=== PATIENT | male | born 1935 | race Caucasian/White ===

== ENCOUNTER 2020-12-31 18:12 | Inpatient (IN) | payer OTHER, MEDICARE, MEDICAID ==
[~2020-12-31] VITALS: Ht 167.6 cm; Wt 95.7 kg
[2021-01-01 00:02] VITALS: BP 133/59
[2021-01-01] MEDS ORDERED: ACET-1156 PO (03:09)
[2021-01-01] MEDS ORDERED: ASPI81CH49 PO (03:42)
[2021-01-01] MEDS ORDERED: BRIM0.159 OP (03:42)
[2021-01-01] MEDS ORDERED: ASCO500C46 PO (03:42)
[2021-01-01] MEDS ORDERED: FERR-20 PO (03:43)
[2021-01-01] MEDS ORDERED: LACT10SO70 PO (03:43)
[2021-01-01] MEDS ORDERED: CARB1TAB44 PO (03:43)
[2021-01-01] MEDS ORDERED: DOCU100T15 PO (03:43)
[2021-01-01] MEDS ORDERED: OMEG600C2 PO (03:43)
[2021-01-01] MEDS ORDERED: OMEP-434 PO (03:43)
[2021-01-01] MEDS ORDERED: MAGN400T40 PO (03:43)
[2021-01-01] MEDS ORDERED: ALBU108A14 IN (03:43)
[2021-01-01] MEDS ORDERED: MELA3TAB27 PO (03:43)
[2021-01-01] MEDS ORDERED: CALC500C66 PO (03:43)
[2021-01-01] MEDS ORDERED: LINA5TAB PO (03:43)
[2021-01-01] MEDS ORDERED: TROS20TA3 PO (03:43)
[2021-01-01] MEDS ORDERED: CYAN100056 PO (03:43)
[2021-01-01] MEDS ORDERED: GLIP10TA9 PO (03:43)
[2021-01-01] MEDS ORDERED: INSU70IN3 SC (03:43)
[2021-01-01] MEDS ORDERED: GABA100C9 PO (03:43)
[2021-01-01] MEDS ORDERED: UMEC1INH IN (03:43)
[2021-01-01] MEDS ORDERED: FURO40TA4 PO ×2 (03:43)
[2021-01-01] MEDS ORDERED: SELE5CAP8 PO (03:43)
[2021-01-01] MEDS ORDERED: FINA5TAB4 PO (03:43)
[2021-01-01] MEDS ORDERED: LATA0.0019 EACHEYE (03:43)
[2021-01-01 05:00] VITALS: BP 116/55
[2021-01-01 06:10] LABS: Basophils # (auto) 0.1 10 ^3/uL (0-0.2); Basophils % (auto) 1.2 % (0.0-2.0); Eosinophils # (auto) 0.4 10 ^3/uL (0-0.8); Eosinophils % (auto) 4.6 % (0.0-7.0); Hematocrit 29.7 % (41.0-53.0); Hemoglobin 10.2 g/dL (13.5-17.5); Lymphocytes # (auto) 1.3 10 ^3/uL (0.4-5.4); Mean Corpuscular Hemoglobin 32.1 pg (28.0-32.0); Mean Corpuscular Hgb Conc. 34.3 g/dL (32.0-36.0); Mean Corpuscular Volume 93.7 fL (80.0-100.0); Monocytes % (auto) 11.2 % (0.0-12.0); Neutrophils # (auto) 5.7 10 ^3/uL (1.6-8.6); Platelet Count (auto) 278 10^3/uL (140-450); Red Blood Cells 3.17 10^6/uL (4.5-5.90); Red Cell Distribution Width 14.9 % (11.8-14.3); White Blood Cell 8.5 10^3/uL (4.4-10.8)
[2021-01-01 06:22] LABS: Potassium 3.7 mmol/L (3.5-5.1)
[2021-01-01 06:36] LABS: Albumin 2.5 g/dL (3.4-5.0); BUN/Creatinine Ratio 32.6; Bilirubin, Total 0.5 mg/dL (0.2-1.0); Calcium 8.4 mg/dL (8.5-10.1); Total Protein 6.9 g/dL (6.4-8.2)
[2021-01-01 08:47] VITALS: BP 131/65
[2021-01-01] MEDS ORDERED: MORPHINE SULF INJ 2 MG/ML SYRINGE 1ML IV PRN (10:00)
[2021-01-01] MEDS ORDERED: ENOXAPARIN SOD 60 MG/0.6 ML SYRINGE SC SCH (10:00)
[2021-01-01] MEDS ORDERED: NITROGLYCERIN 0.4 MG SL TAB SL PRN (10:00)
[2021-01-01 10:51] LABS: INR 1.18 (0.9-1.15); Partial Thromboplastin Time 28.7 sec (23.0-31.2)
[2021-01-01 11:02] LABS: Urine Bacteria NONE SEEN /hpf (None Seen); Urine Blood 2+ /uL (Negative); Urine Specific Gravity 1.017 (1.001-1.035); Urine WBC 3 /hpf (0 - 3)
[2021-01-01 13:14] VITALS: BP 133/71
[2021-01-01] MEDS ORDERED: IOHEXOL 350 MG/ML 100ML IJ ONE (13:59)
[2021-01-01] MEDS ORDERED: LIDOCAINE 2%HCL (LOCAL ANESTH.) INJ 20ML MDV ONE (14:00)
[2021-01-01] MEDS ORDERED: FUROSEMIDE 20 MG/2 ML VIAL ONE (14:23)
[2021-01-01] MEDS ORDERED: ANGIOMAX 250 MG VIAL IV ONE (14:23)
[2021-01-01] MEDS ORDERED: fentaNYL CITRATE 100 MCG/2 ML VL ONE (14:23)
[2021-01-01] MEDS ORDERED: SODIUM CHL 0.9% 50 ML ONE (14:24)
[2021-01-01] MEDS ORDERED: MIDAZOLAM HCL 1MG/1ML-2 ML VIAL ONE (14:24)
[2021-01-01] MEDS ORDERED: ASPirin 325 MG TAB ONE (15:21)
[2021-01-01] MEDS ORDERED: CLOPIDOGREL 300 MG TAB ONE (15:21)
[2021-01-01] MEDS: SODIUM CHLORIDE 0.9% 1,000 ML IV SCH (16:55)
[2021-01-01 17:21] VITALS: BP 129/61
[2021-01-01 18:28] LABS: Albumin 2.4 g/dL (3.4-5.0); BUN/Creatinine Ratio 26.1; Calcium 8.3 mg/dL (8.5-10.1); Potassium 4.6 mmol/L (3.5-5.1)
[2021-01-01 18:31] LABS: Bilirubin, Total 0.6 mg/dL (0.2-1.0); Total Protein 7.2 g/dL (6.4-8.2)
[2021-01-01] MEDS: SACUBITRIL-VALSARTAN 24mg/26mg TAB PO SCH (21:42)
[2021-01-01 22:00] VITALS: BP 122/59
[2021-01-01] MEDS: HYDROcodone-ACET 5/325MG TAB PO PRN (23:29)
[2021-01-02] MEDS: SODIUM CHLORIDE 0.9% 1,000 ML IV SCH (02:32)
[2021-01-02 05:00] VITALS: BP 121/56
[2021-01-02 09:00] VITALS: BP 118/76
[2021-01-02] MEDS: FUROSEMIDE 40 MG/4 ML VIAL IV SCH (09:53)
[2021-01-02] MEDS: CLOPIDOGREL BISULFATE 75 MG TAB PO SCH (09:54)
[2021-01-02] MEDS: POTASSIUM CHL 20 Meq TABLET PO SCH (09:54)
[2021-01-02] MEDS: SACUBITRIL-VALSARTAN 24mg/26mg TAB PO SCH ×2 (10:00→22:04)
[2021-01-02 13:00] VITALS: BP 117/53
[2021-01-02 17:00] VITALS: BP 114/51
[2021-01-02] MEDS ORDERED: FUROSEMIDE 40 MG/4 ML VIAL IV ONE (17:45)
[2021-01-02 22:00] VITALS: BP 112/59
[2021-01-02] MEDS: MUPIROCIN 2% OINT 15gm or 22gm EACHNOSTRI SCH (22:00)
[2021-01-03 05:00] VITALS: BP 121/50
[2021-01-03] MEDS ORDERED: DEXTROSE (50%) 50ML SYRG IV PRN (08:45)
[2021-01-03 08:50] VITALS: BP 122/52
[2021-01-03] MEDS: SACUBITRIL-VALSARTAN 24mg/26mg TAB PO SCH ×2 (09:45→22:27)
[2021-01-03] MEDS: CLOPIDOGREL BISULFATE 75 MG TAB PO SCH (09:45)
[2021-01-03] MEDS: HYDROcodone-ACET 5/325MG TAB PO PRN ×2 (09:45→23:16)
[2021-01-03] MEDS: FUROSEMIDE 40 MG/4 ML VIAL IV SCH (09:46)
[2021-01-03 10:36] LABS: Basophils # (auto) 0.1 10 ^3/uL (0-0.2); Basophils % (auto) 1.1 % (0.0-2.0); Eosinophils # (auto) 0.2 10 ^3/uL (0-0.8); Eosinophils % (auto) 2.9 % (0.0-7.0); Hematocrit 29.4 % (41.0-53.0); Lymphocytes # (auto) 0.9 10 ^3/uL (0.4-5.4); Lymphocytes % (auto) 11.3 % (10.0-50.0); Mean Corpuscular Hemoglobin 31.9 pg (28.0-32.0); Mean Corpuscular Hgb Conc. 33.8 g/dL (32.0-36.0); Mean Corpuscular Volume 94.3 fL (80.0-100.0); Monocytes # (auto) 0.8 10 ^3/uL (0-1.3); Monocytes % (auto) 10.3 % (0.0-12.0); Neutrophils # (auto) 5.9 10 ^3/uL (1.6-8.6); Neutrophils % (auto) 74.4 % (37.0-80.0); Platelet Count (auto) 249 10^3/uL (140-450); Red Blood Cells 3.12 10^6/uL (4.5-5.90); Red Cell Distribution Width 14.9 % (11.8-14.3)
[2021-01-03] MEDS: ACCU-CHEK COMFORT CURVE STRIP VI SCH ×3 (11:30→22:27)
[2021-01-03 11:56] LABS: Albumin 2.2 g/dL (3.4-5.0); BUN/Creatinine Ratio 29.2; Bilirubin, Total 0.6 mg/dL (0.2-1.0); Calcium 8.2 mg/dL (8.5-10.1); Potassium 4.3 mmol/L (3.5-5.1); Total Protein 6.6 g/dL (6.4-8.2)
[2021-01-03] MEDS: InsuLIN REG 1unit/0.01ml Soln (100units/ml) SC SCH ×3 (12:00→22:00)
[2021-01-03] MEDS ORDERED: InsuLIN REG 1unit/0.01ml Soln (100units/ml) SC ONE ×2 (12:45→13:00)
[2021-01-03 12:49] VITALS: BP 111/83
[2021-01-03] MEDS: POTASSIUM CHL 20 Meq TABLET PO SCH (12:52)
[2021-01-03] MEDS: MUPIROCIN 2% OINT 15gm or 22gm EACHNOSTRI SCH ×2 (12:52→22:27)
[2021-01-03 17:17] VITALS: BP 109/60
[2021-01-03 22:00] VITALS: BP 118/57
[2021-01-04 05:00] VITALS: BP 113/55
[2021-01-04] MEDS: ACCU-CHEK COMFORT CURVE STRIP VI SCH ×4 (06:20→21:43)
[2021-01-04] MEDS: InsuLIN REG 1unit/0.01ml Soln (100units/ml) SC SCH ×4 (06:22→21:44)
[2021-01-04 08:46] VITALS: BP 113/52
[2021-01-04] MEDS ORDERED: ENOXAPARIN SOD 30 MG/0.3 ML SYRINGE SC SCH (10:00)
[2021-01-04] MEDS: MUPIROCIN 2% OINT 15gm or 22gm EACHNOSTRI SCH ×2 (10:06→21:11)
[2021-01-04] MEDS: SACUBITRIL-VALSARTAN 24mg/26mg TAB PO SCH ×2 (10:06→21:10)
[2021-01-04] MEDS: CLOPIDOGREL BISULFATE 75 MG TAB PO SCH (10:06)
[2021-01-04] MEDS: FUROSEMIDE 40 MG/4 ML VIAL IV SCH (10:07)
[2021-01-04] MEDS: ENOXAPARIN SOD 40 MG/0.4 ML SYRINGE SC SCH (10:07)
[2021-01-04] MEDS: HYDROcodone-ACET 5/325MG TAB PO PRN (10:10)
[2021-01-04 12:08] LABS: Basophils # (auto) 0.1 10 ^3/uL (0-0.2); Eosinophils # (auto) 0.3 10 ^3/uL (0-0.8); Hematocrit 30.3 % (41.0-53.0); Hemoglobin 10.2 g/dL (13.5-17.5); Lymphocytes # (auto) 1.2 10 ^3/uL (0.4-5.4); Lymphocytes % (auto) 13.3 % (10.0-50.0); Mean Corpuscular Hemoglobin 31.6 pg (28.0-32.0); Mean Corpuscular Hgb Conc. 33.5 g/dL (32.0-36.0); Mean Corpuscular Volume 94.2 fL (80.0-100.0); Monocytes % (auto) 11.1 % (0.0-12.0); Neutrophils # (auto) 6.4 10 ^3/uL (1.6-8.6); Neutrophils % (auto) 71.6 % (37.0-80.0); Nucleated Red Blood Cells % 0.1 %; Platelet Count (auto) 271 10^3/uL (140-450); Red Blood Cells 3.22 10^6/uL (4.5-5.90); Red Cell Distribution Width 14.5 % (11.8-14.3)
[2021-01-04 12:34] LABS: Albumin 2.3 g/dL (3.4-5.0); Calcium 8.3 mg/dL (8.5-10.1); Potassium 4.3 mmol/L (3.5-5.1)
[2021-01-04 12:40] LABS: BUN/Creatinine Ratio 29.8; Bilirubin, Total 0.6 mg/dL (0.2-1.0); Total Protein 6.7 g/dL (6.4-8.2)
[2021-01-04 13:00] VITALS: BP 116/51
[2021-01-04] MEDS ORDERED: methylPREDNISolone SOD SUCC 40 MG/ML VL IV ONE (14:30)
[2021-01-04] MEDS: POTASSIUM CHL 20 Meq TABLET PO SCH (14:44)
[2021-01-04] MEDS: IPRATROPIUM BROM 0.5 MG/2.5ML INH SOL NEB SCH ×2 (16:34→18:56)
[2021-01-04 16:45] VITALS: BP 114/58
[2021-01-04] MEDS ORDERED: LACTULOSE 20Gm/30ML SOLN PO ONE (20:30)
[2021-01-04] MEDS: methylPREDNISolone SOD SUCC 40 MG/ML VL IV SCH (21:11)
[2021-01-04 22:00] VITALS: BP 124/62
[2021-01-05 05:00] VITALS: BP 133/61
[2021-01-05] MEDS: ACCU-CHEK COMFORT CURVE STRIP VI SCH ×4 (06:32→21:48)
[2021-01-05] MEDS: InsuLIN REG 1unit/0.01ml Soln (100units/ml) SC SCH ×4 (06:33→21:43)
[2021-01-05] MEDS: IPRATROPIUM BROM 0.5 MG/2.5ML INH SOL NEB SCH ×3 (06:38→21:38)
[2021-01-05] MEDS: INSULIN LANTUS (GLARGINE) 1 /0.01ml (100units/ml) SC SCH ×2 (08:22→21:46)
[2021-01-05 09:00] VITALS: BP 128/60
[2021-01-05] MEDS: ENOXAPARIN SOD 40 MG/0.4 ML SYRINGE SC SCH (11:14)
[2021-01-05] MEDS: SACUBITRIL-VALSARTAN 24mg/26mg TAB PO SCH ×2 (11:14→21:39)
[2021-01-05] MEDS: methylPREDNISolone SOD SUCC 40 MG/ML VL IV SCH (11:14)
[2021-01-05] MEDS: GABAPENTIN 100 MG CAP PO SCH ×2 (11:14→21:40)
[2021-01-05] MEDS: DIGOXIN 0.125 MG TAB PO SCH (11:16)
[2021-01-05] MEDS: POTASSIUM CHL 20 Meq TABLET PO SCH (11:17)
[2021-01-05] MEDS: FUROSEMIDE 40 MG/4 ML VIAL IV SCH (11:18)
[2021-01-05] MEDS: MUPIROCIN 2% OINT 15gm or 22gm EACHNOSTRI SCH ×2 (11:18→21:39)
[2021-01-05] MEDS: CLOPIDOGREL BISULFATE 75 MG TAB PO SCH (11:19)
[2021-01-05 13:00] VITALS: BP 117/60
[2021-01-05 17:00] VITALS: BP 148/69
[2021-01-05] MEDS: HYDROcodone-ACET 5/325MG TAB PO PRN ×2 (18:35→18:36)
[2021-01-05 22:00] VITALS: BP 123/57
[2021-01-06 05:00] VITALS: BP 108/45
[2021-01-06] MEDS: InsuLIN REG 1unit/0.01ml Soln (100units/ml) SC SCH ×4 (06:26→22:07)
[2021-01-06] MEDS: ACCU-CHEK COMFORT CURVE STRIP VI SCH ×4 (06:27→22:03)
[2021-01-06] MEDS: INSULIN LANTUS (GLARGINE) 1 /0.01ml (100units/ml) SC SCH ×2 (06:27→22:07)
[2021-01-06] MEDS: IPRATROPIUM BROM 0.5 MG/2.5ML INH SOL NEB SCH ×3 (06:53→18:28)
[2021-01-06 08:30] VITALS: BP 99/50
[2021-01-06] MEDS: DIGOXIN 0.125 MG TAB PO SCH (09:55)
[2021-01-06] MEDS: POTASSIUM CHL 20 Meq TABLET PO SCH (09:55)
[2021-01-06] MEDS: SACUBITRIL-VALSARTAN 24mg/26mg TAB PO SCH ×2 (09:55→22:03)
[2021-01-06] MEDS: ENOXAPARIN SOD 40 MG/0.4 ML SYRINGE SC SCH (09:56)
[2021-01-06] MEDS: CLOPIDOGREL BISULFATE 75 MG TAB PO SCH (09:56)
[2021-01-06] MEDS: GABAPENTIN 100 MG CAP PO SCH ×2 (09:56→22:03)
[2021-01-06] MEDS: FUROSEMIDE 40 MG/4 ML VIAL IV SCH (09:57)
[2021-01-06] MEDS: MUPIROCIN 2% OINT 15gm or 22gm EACHNOSTRI SCH ×2 (09:58→22:03)
[2021-01-06] MEDS ORDERED: predniSONE 20 MG TAB PO SCH (10:00)
[2021-01-06 12:30] VITALS: BP 119/55
[2021-01-06 15:22] LABS: Basophils % (auto) 0.1 % (0.0-2.0); Eosinophils % (auto) 0.3 % (0.0-7.0); Lymphocytes % (auto) 7.6 % (10.0-50.0); White Blood Cell 12.2 10^3/uL (4.4-10.8)
[2021-01-06 15:23] LABS: Basophils # (auto) 0 10 ^3/uL (0-0.2); Eosinophils # (auto) 0 10 ^3/uL (0-0.8); Hematocrit 30.5 % (41.0-53.0); Hemoglobin 10.4 g/dL (13.5-17.5); Lymphocytes # (auto) 0.9 10 ^3/uL (0.4-5.4); Mean Corpuscular Hemoglobin 31.7 pg (28.0-32.0); Mean Corpuscular Hgb Conc. 33.9 g/dL (32.0-36.0); Mean Corpuscular Volume 93.3 fL (80.0-100.0); Monocytes # (auto) 0.5 10 ^3/uL (0-1.3); Neutrophils # (auto) 10.7 10 ^3/uL (1.6-8.6); Platelet Count (auto) 246 10^3/uL (140-450); Red Blood Cells 3.27 10^6/uL (4.5-5.90); Red Cell Distribution Width 14.7 % (11.8-14.3)
[2021-01-06 15:45] LABS: Calcium 8.6 mg/dL (8.5-10.1); Potassium 4.5 mmol/L (3.5-5.1)
[2021-01-06 16:55] VITALS: BP 123/64
[2021-01-06 22:00] VITALS: BP 107/54
[2021-01-07 05:00] VITALS: BP 118/53
[2021-01-07] MEDS: INSULIN LANTUS (GLARGINE) 1 /0.01ml (100units/ml) SC SCH ×2 (06:21→22:00)
[2021-01-07] MEDS: ACCU-CHEK COMFORT CURVE STRIP VI SCH ×4 (06:22→21:48)
[2021-01-07] MEDS: InsuLIN REG 1unit/0.01ml Soln (100units/ml) SC SCH ×4 (06:22→22:00)
[2021-01-07] MEDS: IPRATROPIUM BROM 0.5 MG/2.5ML INH SOL NEB SCH ×3 (06:39→22:47)
[2021-01-07 07:35] VITALS: BP 118/53
[2021-01-07 08:30] VITALS: BP 118/67
[2021-01-07] MEDS: MUPIROCIN 2% OINT 15gm or 22gm EACHNOSTRI SCH (09:57)
[2021-01-07] MEDS: SACUBITRIL-VALSARTAN 24mg/26mg TAB PO SCH ×2 (09:58→21:47)
[2021-01-07] MEDS: POTASSIUM CHL 20 Meq TABLET PO SCH (09:58)
[2021-01-07] MEDS: DIGOXIN 0.125 MG TAB PO SCH (09:58)
[2021-01-07] MEDS: FUROSEMIDE 40 MG/4 ML VIAL IV SCH (09:58)
[2021-01-07] MEDS: GABAPENTIN 100 MG CAP PO SCH ×2 (09:59→21:47)
[2021-01-07] MEDS: ENOXAPARIN SOD 40 MG/0.4 ML SYRINGE SC SCH (09:59)
[2021-01-07] MEDS: CLOPIDOGREL BISULFATE 75 MG TAB PO SCH (09:59)
[2021-01-07 12:30] VITALS: BP 109/71
[2021-01-07 16:47] VITALS: BP 113/52
[2021-01-07] MEDS: HYDROcodone-ACET 5/325MG TAB PO PRN (21:58)
[2021-01-07 22:00] VITALS: BP 111/57
[2021-01-08 05:00] VITALS: BP 104/54
[2021-01-08] MEDS: InsuLIN REG 1unit/0.01ml Soln (100units/ml) SC SCH ×4 (06:17→21:04)
[2021-01-08] MEDS: ACCU-CHEK COMFORT CURVE STRIP VI SCH ×4 (06:18→21:05)
[2021-01-08] MEDS: INSULIN LANTUS (GLARGINE) 1 /0.01ml (100units/ml) SC SCH ×2 (06:21→21:04)
[2021-01-08] MEDS: IPRATROPIUM BROM 0.5 MG/2.5ML INH SOL NEB SCH ×2 (07:00→21:46)
[2021-01-08 08:41] VITALS: BP 106/48
[2021-01-08] MEDS: FUROSEMIDE 40 MG/4 ML VIAL IV SCH (10:00)
[2021-01-08] MEDS: SACUBITRIL-VALSARTAN 24mg/26mg TAB PO SCH ×2 (10:09→21:05)
[2021-01-08] MEDS: CLOPIDOGREL BISULFATE 75 MG TAB PO SCH (10:10)
[2021-01-08] MEDS: GABAPENTIN 100 MG CAP PO SCH ×2 (10:10→21:05)
[2021-01-08] MEDS: DIGOXIN 0.125 MG TAB PO SCH (10:11)
[2021-01-08] MEDS: POTASSIUM CHL 20 Meq TABLET PO SCH (10:11)
[2021-01-08] MEDS: HYDROcodone-ACET 5/325MG TAB PO PRN ×2 (10:11→20:51)
[2021-01-08] MEDS: ENOXAPARIN SOD 40 MG/0.4 ML SYRINGE SC SCH (10:19)
[2021-01-08 12:46] VITALS: BP 119/53
[2021-01-08 16:58] VITALS: BP 108/48
[2021-01-08 18:23] VITALS: BP 108/48
[2021-01-08 21:35] VITALS: BP 112/56
[2021-01-09 05:30] VITALS: BP 105/41
[2021-01-09] MEDS: IPRATROPIUM BROM 0.5 MG/2.5ML INH SOL NEB SCH (06:19)
[2021-01-09] MEDS: INSULIN LANTUS (GLARGINE) 1 /0.01ml (100units/ml) SC SCH (06:54)
[2021-01-09] MEDS: ACCU-CHEK COMFORT CURVE STRIP VI SCH (06:55)
[2021-01-09] MEDS: InsuLIN REG 1unit/0.01ml Soln (100units/ml) SC SCH (06:55)
[2021-01-09 08:55] VITALS: BP 119/65
[2021-01-09 09:00] VITALS: BP 119/65
[2021-01-09] MEDS: SACUBITRIL-VALSARTAN 24mg/26mg TAB PO SCH (09:36)
[2021-01-09] MEDS: POTASSIUM CHL 20 Meq TABLET PO SCH (09:36)
[2021-01-09] MEDS: DIGOXIN 0.125 MG TAB PO SCH (09:37)
[2021-01-09] MEDS: GABAPENTIN 100 MG CAP PO SCH (09:38)
[2021-01-09] MEDS: CLOPIDOGREL BISULFATE 75 MG TAB PO SCH (09:38)
[2021-01-09] MEDS: ENOXAPARIN SOD 40 MG/0.4 ML SYRINGE SC SCH (09:40)
[2021-01-09] MEDS: FUROSEMIDE 40 MG/4 ML VIAL IV SCH (09:41)
== END 2021-01-09 10:45 | DRG 246 ==
LOC: TELE 22:26 → TELE-CENTR 22:27
PROVIDERS: ADMIT Internal Medicine Cardiovascular Disease; ATTEND Internal Medicine Cardiovascular Disease
PROC: B2111ZZ Fluoroscopy of Multiple Coronary Arteries using Low Osmolar Contrast (ICD-10-PCS; principal; 2021-01-01)
PROC: 027135Z Dilation of Coronary Artery, Two Arteries with Two Drug-eluting Intraluminal Devices, Percutaneous Approach (ICD-10-PCS; 2021-01-01)
PROC: B2151ZZ Fluoroscopy of Left Heart using Low Osmolar Contrast (ICD-10-PCS; 2021-01-01)
PROC: 4A023N7 Measurement of Cardiac Sampling and Pressure, Left Heart, Percutaneous Approach (ICD-10-PCS; 2021-01-01)
DX: T82.855A Stenosis of coronary artery stent, initial encounter (principal); I21.4 Non-ST elevation (NSTEMI) myocardial infarction; I50.21 Acute systolic (congestive) heart failure; J96.90 Respiratory failure, unspecified, unspecified whether with hypoxia or hypercapnia; J81.1 Chronic pulmonary edema; I25.110 Atherosclerotic heart disease of native coronary artery with unstable angina pectoris; E87.4 Mixed disorder of acid-base balance; J44.1 Chronic obstructive pulmonary disease with (acute) exacerbation; J98.11 Atelectasis; I25.5 Ischemic cardiomyopathy; I35.0 Nonrheumatic aortic (valve) stenosis; Z20.822 Contact with and (suspected) exposure to COVID-19; E66.01 Morbid (severe) obesity due to excess calories; Z68.33 Body mass index [BMI] 33.0-33.9, adult; E78.5 Hyperlipidemia, unspecified; G20 Parkinson's disease; I11.0 Hypertensive heart disease with heart failure; E11.21 Type 2 diabetes mellitus with diabetic nephropathy; N40.0 Benign prostatic hyperplasia without lower urinary tract symptoms; Y83.1 Surgical operation with implant of artificial internal device as the cause of abnormal reaction of the patient, or of later complication, without mention of misadventure at the time of the procedure; Z79.02 Long term (current) use of antithrombotics/antiplatelets; Z99.81 Dependence on supplemental oxygen; Y92.89 Other specified places as the place of occurrence of the external cause; Z79.4 Long term (current) use of insulin; Z79.82 Long term (current) use of aspirin; E11.40 Type 2 diabetes mellitus with diabetic neuropathy, unspecified; Z79.899 Other long term (current) drug therapy
CPT/HCPCS: 36415; 36600; 71045; 80048; 80053; 81001; 82805; 82962; 83880; 84484; 85025; 85610; 85730; 86850; 86900; 86901; 87081; 92928; 93458; 94640; 97110; 97116; 97163; 97530; 99152; 99153; C1874; G0378; J1815; J2250

== ENCOUNTER → 2021-01-21 | Outpatient (CLI) | payer MEDICARE, MEDICAID, OTHER ==
[~2021-01-21] MED LIST: ACET-1156 PO; ALBU108A14 IN; ASCO500C46 PO; ASPI81CH49 PO; BRIM0.159 OP; CALC500C66 PO; CARB1TAB44 PO; CYAN100056 PO; DOCU100T15 PO; FERR-20 PO; FINA5TAB4 PO; FURO40TA4 PO; GABA100C9 PO; GLIP10TA9 PO; INSU70IN3 SC; LACT10SO70 PO; LATA0.0019 EACHEYE; LINA5TAB PO; MAGN400T40 PO; MELA3TAB27 PO; OMEG600C2 PO; OMEP-434 PO; SELE5CAP8 PO; TROS20TA3 PO; UMEC1INH IN
== END | disposition home or self-care (01) ==
LOC: Rad HDHVI 12:56
PROVIDERS: ATTEND Internal Medicine Cardiovascular Disease
DX: R06.02 Shortness of breath (principal); R07.9 Chest pain, unspecified
CPT/HCPCS: 93306

== ENCOUNTER → 2021-02-05 | Outpatient (CLI) | payer MEDICARE, MEDICAID, OTHER ==
[~2021-02-05] VITALS: Ht 167.6 cm; Wt 95.3 kg
[~2021-02-05] MED LIST changes: +ADENOSINE 80 MG in GIVE UN-DILUTED 0 ML IV ONE; +ADENOSINE 90 MG/30 ML INJ IV ONE
== END | disposition home or self-care (01) ==
LOC: Rad HDHVI 09:23
PROVIDERS: ATTEND Internal Medicine Cardiovascular Disease
DX: I25.10 Atherosclerotic heart disease of native coronary artery without angina pectoris (principal); I10 Essential (primary) hypertension; E11.9 Type 2 diabetes mellitus without complications; J44.1 Chronic obstructive pulmonary disease with (acute) exacerbation
CPT/HCPCS: 78452; 93005; 94640; 96374; 96375; A9500; J0153

== ENCOUNTER → 2021-03-06 | Outpatient (CLI) | payer MEDICARE, MEDICAID ==
[~2021-03-06] VITALS: Ht 167.6 cm; Wt 95.4 kg
[~2021-03-06] MED LIST changes: -ADENOSINE 80 MG in GIVE UN-DILUTED 0 ML IV ONE; -ADENOSINE 90 MG/30 ML INJ IV ONE; +CLOP75TA28 PO; +HYDR-4902 PO; +POTA-220 PO
[2021-03-06 09:08] VITALS: BP 126/57
[2021-03-06 09:26] VITALS: BP 123/60
[2021-03-06 12:21] LABS: Basophils # (auto) 0.1 10 ^3/uL (0-0.2); Basophils % (auto) 1.1 % (0.0-2.0); Eosinophils # (auto) 0.3 10 ^3/uL (0-0.8); Eosinophils % (auto) 3.4 % (0.0-7.0); Hematocrit 37.8 % (41.0-53.0); Hemoglobin 12.7 g/dL (13.5-17.5); Lymphocytes # (auto) 1.8 10 ^3/uL (0.4-5.4); Lymphocytes % (auto) 23.9 % (10.0-50.0); Mean Corpuscular Hemoglobin 31.8 pg (28.0-32.0); Mean Corpuscular Hgb Conc. 33.6 g/dL (32.0-36.0); Mean Corpuscular Volume 94.5 fL (80.0-100.0); Monocytes # (auto) 0.7 10 ^3/uL (0-1.3); Monocytes % (auto) 9.3 % (0.0-12.0); Neutrophils # (auto) 4.7 10 ^3/uL (1.6-8.6); Neutrophils % (auto) 62.3 % (37.0-80.0); Nucleated Red Blood Cells % 0.1 %; Platelet Count (auto) 236 10^3/uL (140-450); White Blood Cell 7.6 10^3/uL (4.4-10.8)
[2021-03-06 12:29] LABS: Calcium 9.1 mg/dL (8.5-10.1); Potassium 4.6 mmol/L (3.5-5.1)
[2021-03-06 12:31] LABS: BUN/Creatinine Ratio 11.7; INR 1.01 (0.9-1.15); Partial Thromboplastin Time 27.9 sec (23.0-31.2)
== END | disposition home or self-care (01) ==
LOC: Rad HDHVI 08:50
PROVIDERS: ATTEND Internal Medicine Cardiovascular Disease
DX: Z01.812 Encounter for preprocedural laboratory examination (principal); R94.31 Abnormal electrocardiogram [ECG] [EKG]; I50.9 Heart failure, unspecified
CPT/HCPCS: 36415; 80048; 85025; 85610; 85730; 93005; G0463

== ENCOUNTER 2021-03-12 10:33 | Day surgery (SDC) | payer MEDICARE, MEDICAID ==
[2021-03-12] MEDS ORDERED: MIDAZOLAM HCL 1MG/1ML-2 ML VIAL IV ONE (11:15)
[2021-03-12] MEDS ORDERED: LIDOCAINE 2%HCL (LOCAL ANESTH.) INJ 20ML MDV ONE (12:28)
[2021-03-12] MEDS ORDERED: SODIUM CHL 0.9% 0 ML ONE (12:28)
[2021-03-12] MEDS ORDERED: fentaNYL CITRATE 100 MCG/2 ML VL ONE (12:28)
[2021-03-12] MEDS ORDERED: ANGIOMAX 250 MG VIAL IV ONE (12:28)
== END 2021-03-12 16:25 ==
LOC: CATH 10:33
PROVIDERS: ATTEND Internal Medicine Cardiovascular Disease
DX: I25.10 Atherosclerotic heart disease of native coronary artery without angina pectoris (principal); I35.0 Nonrheumatic aortic (valve) stenosis; J44.9 Chronic obstructive pulmonary disease, unspecified; I25.2 Old myocardial infarction; Z87.891 Personal history of nicotine dependence; Z20.822 Contact with and (suspected) exposure to COVID-19; Z98.890 Other specified postprocedural states; Z79.899 Other long term (current) drug therapy
CPT/HCPCS: 93312; 93456; 93571; C1751; C1760; C1769; C1894; J1644; J2250; J3010; J7030; U0003; 99152; 99153; A4565